=== PATIENT | female | born 1970 | race African-American/Black ===

== ENCOUNTER 2016-07-15 17:27 | Emergency (ER) | payer BC, MEDICARE ==
[2016-07-15] MEDS ORDERED: SODIUM CHLORIDE 0.9% 50 ML IV ONE (19:47)
[2016-07-15] MEDS ORDERED: PANTOPRAZOLE 40 MG VIAL IV ONE (19:47)
[2016-07-15] MEDS ORDERED: PROMETHAZINE 25 MG/ML VIAL ONE (19:47)
[2016-07-15] MEDS ORDERED: HYOSCYAMINE 0.5 MG/ML AMP 1 ML ONE ×2 (19:47→22:52)
[2016-07-15] MEDS ORDERED: SODIUM CHLORIDE 0.9% 1,000 ML ONE (19:47)
[2016-07-15] MEDS ORDERED: FAMOTIDINE 20 MG INJ ONE (22:52)
== END 2016-07-15 23:57 | disposition home or self-care (01) ==
LOC: ER 17:27
CPT/HCPCS: 36415; 74020; 80053; 83690; 85025; 86677; 96361; 96365; 96375; 96376